=== PATIENT | female | born 1945 | race Hispanic/Latino ===

== ENCOUNTER 2019-03-11 05:32 | Observation (INO) | payer MEDICARE ==
[2019-02-28 13:32] LABS: BASOPHILS % 0.3 % (0.0-1.0); EOSINOPHILS # (AUTO) 0.1 (0.0-0.4); EOSINOPHILS % 1.4 % (0.0-6.0); HEMATOCRIT 43.9 % (34.2-44.1); LYMPHOCYTES # (AUTO) 4.2 (1.0-3.2); LYMPHOCYTES % 44.5 % (18.0-39.1); MEAN CORPUSCULAR HEMOGLOBIN 30.9 pg (28-32); MEAN CORPUSCULAR HGB CONC 34.2 g/dL (31-35); MEAN CORPUSCULAR VOLUME 90.3 fL (81-99); MONOCYTES # (AUTO) 0.5 (0.2-0.8); MONOCYTES % 5.2 % (4.4-11.3); NEUTROPHILS # (AUTO) 4.6 (2.1-6.9); NEUTROPHILS % 48.4 % (38.7-80.0); PLATELET COUNT 208 x10e3/uL (140-360); RED BLOOD COUNT 4.86 x10e6/uL (3.6-5.1); RED CELL DISTRIBUTION WIDTH 13.1 % (11.7-14.4)
--- NOTE | 2019-02-28 13:51 | Diagnostic Imaging Report ---
EXAMINATION: PA and lateral views of the chest. COMPARISON: None CLINICAL HISTORY: Preoperative study for orthopedic procedure DISCUSSION: Lungs are well-inflated. No focal airspace consolidation, pleural effusion, or pneumothorax. Tortuous thoracic aorta with atherosclerotic calcification. Normal heart size. No pulmonary edema. IMPRESSION: No acute cardiopulmonary abnormalities. Signed by: Dr. Jared Robertson M.D. on 02/28/2019 1:48 PM
[2019-02-28 13:53] LABS: ANION GAP 14.5 mmol/L (8-16); BLOOD UREA NITROGEN 15 mg/dL (7-26); BUN/CREATININE RATIO 20 (6-25); CALCIUM 10.5 mg/dL (8.4-10.2); CARBON DIOXIDE 29 mmol/L (22-29); CHLORIDE 101 mmol/L (98-107); CREATININE, SERUM 0.74 mg/dL (0.57-1.11); EST GLOMERULAR FILTRATION RATE > 60 ML/MIN (60-); GLUCOSE 135 mg/dL (74-118); POTASSIUM 3.5 mmol/L (3.5-5.1); SODIUM 141 mmol/L (136-145)
--- NOTE | 2019-03-05 07:42 | Diagnostic Imaging Report ---
EXAMINATION: PA and lateral views of the chest. COMPARISON: None CLINICAL HISTORY: Preoperative study for orthopedic procedure DISCUSSION: Lungs are well-inflated. No focal airspace consolidation, pleural effusion, or pneumothorax. Tortuous thoracic aorta with atherosclerotic calcification. Normal heart size. No pulmonary edema. IMPRESSION: No acute cardiopulmonary abnormalities. Signed by: Dr. Jared Robertson M.D. on 03/05/2019 7:39 AM
[~2019-03-11] VITALS: Ht 144.8 cm; Wt 64.4 kg
[~2019-03-11 05:32] MED LIST: ASPIRIN81 MG PO; ATORVASTATIN CA20 MG PO; GLUCOSAMINE1000 MG PO; HYZAAR 100-12.1 EACH PO; METFORMIN HCL500 MG PO; VITAMIN D31000 UNIT PO
--- OUTSIDE RECORDS SUMMARY | 2019-03-11 05:36 | XMS REPORT | Summary of Care ---
Author Author [facility] Organization [facility] Address Unknown Phone Unavailable Encounter HQ Encntr_alias(FIN) [id number] Date(s): 03/27/15 - 03/27/15 [facility] [address] [place] [address]- Discharge Disposition: Home Attending Physician: Theodore Randall MD Referring Physician: Theodore Randall MD Vital Signs No data available for this section Problem List No data available for this section Allergies, Adverse Reactions, Alerts No data available for this section Medications No data available for this section Results No data available for this section Immunizations No data available for this section Procedures No data available for this section Social History No data available for this section Assessment and Plan No data available for this section
--- OUTSIDE RECORDS SUMMARY | 2019-03-11 05:36 | XMS REPORT | Continuity of Care Document ---
Author Author [facility] Address Unknown Phone Unavailable Care Team Providers Care [employer] Makeup Artist Name Role Phone [employer] Unavailable Unavailable Problems Problem Status Onset Date Classification Date Reported Comments Source Encounter for screening mammogram for malignant neoplasm of breast 11/10/2017 02/13/2018 [facility] [place] LYMPHOMA Active 03/22/2015 [facility] Encounter for screening for osteoporosis 02/13/2018 [facility] [place] Asymptomatic menopausal state 02/13/2018 [facility] [place] Essential hypertension 02/13/2018 [facility] [place] Low back pain 02/13/2018 [facility] [place] Pain in right knee 02/13/2018 [facility] [place] Pain in left knee 02/13/2018 [facility] [place] Other specific arthropathies, not elsewhere classified, other specified site 02/13/2018 [facility] [place] Bilateral primary osteoarthritis of knee 02/13/2018 [facility] [place] LYMPHOMA NEC-EXTRNOD/NOS Active [facility] Medications No Data Provided for This Section Allergies, Adverse Reactions, Alerts No Known Medication Allergies Immunizations No Data Provided for This Section Results No Data Provided for This Section Pathology Reports No Data Provided for This Section Diagnostic Reports Report Value Date Source Breast Mammo Scrn LUKE incl CAD MA BILATERAL DIGITAL SCREENING MAMMOGRAM WITH CAD: 02/28/2019 CLINICAL: Routine/Screening. Current study was evaluated with a Computer Aided Detection (CAD) system. COMPARISON:Comparison is made to exams dated: 11/06/2017 mammogram, 01/07/2015 mammogram, 11/24/2014 mammogram, 01/07/2015 ultrasound, and 01/20/2015 ultrasound biopsy - [facility]. TECHNIQUE: Mammographic views were obtained using digital acquisition. Current study was also evaluated with a Computer Aided Detection (CAD) system. FINDINGS: There are scattered fibroglandular densities in both breasts. Bilateral axillary lymphadenopathy is again noted. A right axillary lymph node contains a biopsy clip denoting the site of known lymphoma. There are benign appearing vascular calcifications and calcifications in both breasts. No significant masses, calcifications, or other findings are seen in either breast. There has been no significant interval change. IMPRESSION: BENIGN RECOMMENDATION:Bilateral axillary lymphadenopathy is again noted. A right axillary lymph node contains a biopsy clip denoting the site of known lymphoma. Clinical correlation is advised. There is no mammographic evidence of malignancy. A 1 year screening mammogram is recommended.(02/29/2020) This exam was interpreted at [id number] for [facility], SL 15. Professional services are provided by the [facility] Diagnostic Imaging. Rose Maciel M.D. ms/penrad:03/03/2019 08:47:51 Baffle Installer(s): RT Kiana(R)(M), [facility] [place] letter sent: BI-RADS 1/2 Mammogram BI-RADS: 2 Benign 02/28/2019 [facility] Chest 2 views DX EXAM: Chest 2 views DX HISTORY: - Z00.00 Encounter for general adult medical examination without abnormal findings COMPARISON: 11/06/2017 The heart size is normal. The lungs are clear. There is no pleural effusion or pneumothorax. Mild discogenic degenerative changes are noted. IMPRESSION: No acute abnormality. 02/27/2018 [facility] Knee 1-2 Views Bilateral DX EXAM: Knee 1-2 Views Bilateral DX HISTORY: - pain in both knees COMPARISON: 01/11/2015 AP and lateral views of both knees. FINDINGS: There is moderate medial tibiofemoral joint space narrowing bilaterally. Moderate tricompartmental osteophytes. There is a millimeter calcification projecting in the suprapatellar patellar joint on the right. No fracture or dislocation. No significant joint effusion. IMPRESSION: Moderate degenerative change of both knees. 11/06/2017 [facility] Spine lumbar 2 or 3 views DX EXAM: Spine lumbar 2 or 3 views DX HISTORY: - M54.5 Low back pain COMPARISON: None AP and lateral views of the lumbar spine. FINDINGS: AP alignment is normal. There is no evidence of vertebral body or disc space height loss. No fracture is seen. Mild facet arthropathy at L4-5 and L5-S1. IMPRESSION: Mild facet arthropathy. 11/06/2017 [facility] Chest 2 views DX EXAM: Chest 2 views DX HISTORY: - I10 Essential (primary) hypertension COMPARISON: 11/24/2014 The heart size is normal and the lungs are clear. There is no pleural effusion or pneumothorax. Mild discogenic degenerative changes are noted. IMPRESSION: No acute abnormality. 11/06/2017 [facility] Bone Density DXA [employer] MA BONE DENSITY ASSESSMENT: 11/06/2017 CLINICAL DATA: Post menopausal. Z13.820-Screening for osteoporosis. Z13.820 Encounter For Screening For Osteoporosis/Z13.820 Encounter For Screening For Osteoporosis RISK FACTORS: . FINDINGS: Bone density evaluation was performed 11/06/2017 on the right femur neck using a Hologic unit. The BMD average for the exam is 0.960 g/cm2. The T-score is 1.00 and the Z-score is 2.50. This matches the World Health Organization's criteria for normal bone density and places the patient within normal limits of fracture risk. An additional bone density evaluation was performed 11/06/2017 on the left femur neck using a Hologic unit. The BMD average for the exam is 1.031 g/cm2. The T- score is 1.60 and the Z-score is 3.20. This matches the World Health Organization's criteria for normal bone density and places the patient within normal limits of fracture risk. An additional bone density evaluation was performed 11/06/2017 on the right hip using a Hologic unit. The BMD average for the exam is 1.017 g/cm2. The T-score is 0.60 and the Z-score is 1.90. This matches the World Health Organization's criteria for normal bone density and places the patient within normal limits of fracture risk. An additional bone density evaluation was performed 11/06/2017 on the left hip using a Hologic unit. The BMD average for the exam is 1.025 g/cm2. The T-score is 0.70 and the Z-score is 2.00. This matches the World Health Organization's criteria for normal bone density and places the patient within normal limits of fracture risk. An additional bone density evaluation was performed 11/06/2017 on the AP L1-L4 region of spine using a Hologic unit. The BMD average for the exam is 0.946 g/cm2. The T-score is -0.90 and the Z-score is 1.30. This matches the World Health Organization's criteria for normal bone density and places the patient within normal limits of fracture risk. IMPRESSION: BONE DENSITY WITHIN NORMAL LIMITS Patient is at normal risk for fracture. This exam was interpreted at [id number] at [facility]. Dr. Marizol Freedman D.O. /penrad:11/06/2017 16:27:00 Baffle Installer(s): Julia Stark RT(R)(M), [facility] 11/06/2017 [facility] Breast Mammo Scrn LUKE incl CAD MA BILATERAL DIGITAL SCREENING MAMMOGRAM WITH CAD: 11/06/2017 CLINICAL: Routine/Screening. Current study was evaluated with a Computer Aided Detection (CAD) system. COMPARISON:Comparison is made to exams dated: 01/07/2015 mammogram and 11/24/2014 mammogram - [facility]. TECHNIQUE: Mammographic views were obtained using digital acquisition. Current study was also evaluated with a Computer Aided Detection (CAD) system. FINDINGS: There are scattered fibroglandular densities in both breasts. Bilateral axillary lymphadenopathy is again noted. A right axillary lymph node contains a biopsy clip denoting the site of known lymphoma. There are benign appearing vascular calcifications and calcifications in both breasts. No significant masses, calcifications, or other findings are seen in either breast. There has been no significant interval change. IMPRESSION: BENIGN RECOMMENDATION:Bilateral axillary lymphadenopathy is again noted. A right axillary lymph node contains a biopsy clip denoting the site of known lymphoma. Clinical correlation is advised. There is no mammographic evidence of malignancy. A 1 year screening mammogram is recommended.(11/07/2018) Professional services are provided by the [facility] [place] [facility] Diagnostic Imaging. Juan Rosa M.D. rsana/penrad:11/06/2017 13:05:56 Baffle Installer(s): Marga Case RT(R)(M), [facility] letter sent: BI-RADS 1/2 Mammogram BI-RADS: 2 Benign 11/06/2017 [facility] [place] [address] Lymphoma initial staging PET/CT SCAN: TECHNIQUE: 16.1 mCi of FDG were administered intravenously and a series of overlapping emission images were obtained from the skull base to the proximal thighs utilizing a PET/CT hybrid device. The CT was utilized for attenuation correction and anatomic correlation and not as an independent diagnostic study. BLOOD GLUCOSE: The patient is not diabetic. COMPARISON: Breast ultrasound 01/07/2015 CLINICAL HX: B-cell lymphoma, initial staging. FINDINGS: HEAD AND NECK: No abnormal activity is visualized. CHEST: Multiple small primarily subcentimeter lymph nodes are visualized in both axilla. No significant increase in metabolic activity is noted in either axilla. Maximum SUV is 1.6 on image 73. ABDOMEN AND PELVIS: Physiologic activity is visualized in the solid organs, tract and GI tract. SKELETON: Healing fractures of left seventh and eighth ribs demonstrate mild increase in metabolic activity. No other focus of abnormal activity is noted in the regional skeleton IMPRESSION: Multiple small lymph nodes are visualized in both axilla without significant increase in metabolic activity. No other significant lymphadenopathy is noted on the PET scan. SL:13 03/27/2015 [facility] Consultation Notes No Data Provided for This Section Discharge Summaries No Data Provided for This Section History and Physicals No Data Provided for This Section Vital Signs No Data Provided for This Section Encounters Location Location Details Encounter Type Encounter Number Reason For Visit Attending Provider ADM Date DC Date Status Source [facility] [place] [facility] [id number] [facility] 11/24/2014 11/25/2014 [facility] [place] [facility] [place] [facility] [id number] [facility] 01/07/2015 01/08/2015 [facility] [place] [facility] [place] [facility] [id number] [facility] 01/11/2015 01/12/2015 [facility] [place] [facility] [place] [facility] [id number] [facility] 01/20/2015 01/21/2015 [facility] [place] [facility]patient [id number] [facility] 03/27/2015 03/28/2015 [facility] [place] [facility] [id number] Maxwell Mathis 11/06/2017 11/07/2017 [facility] [place] [facility] [place] [facility] [id number] Maxwell Mathis 02/27/2018 02/28/2018 [facility] [place] [facility] [place] [facility] [id number] Maxwell Mathis 02/28/2019 03/01/2019 [facility] Procedures No Data Provided for This Section Assessment and Plan No Data Provided for This Section Plan of Care No Data Provided for This Section Social History Social History Date Source No data available for this section 03/01/2019 [facility] No data available for this section 03/28/2015 [facility] No Data Provided for This Section Advance Directives No Data Provided for This Section Functional Status No Data Provided for This Section
--- OUTSIDE RECORDS SUMMARY | 2019-03-11 05:36 | XMS REPORT | Summary of Care ---
Author Organization Unknown Address Unknown Phone Unavailable Encounter HQ Encntr_alias(FIN) [id number] Date(s): 01/11/15 - 01/11/15 [facility] Outpatient Imaging - [address] [address] [phone] Discharge Disposition: Home Physician Attending: Anjel Altman MD Vital Signs No data available for [...]
--- OUTSIDE RECORDS SUMMARY | 2019-03-11 05:36 | XMS REPORT | Summary of Care ---
Author Organization Unknown Address Unknown Phone Unavailable Encounter HQ Encntr_alias(FIN) [id number] Date(s): 01/07/15 - 01/07/15 [facility] Outpatient Imaging - [address] [address] [phone] Discharge Disposition: Home Physician Attending: Anjel Altman [...]
--- OUTSIDE RECORDS SUMMARY | 2019-03-11 05:36 | XMS REPORT | Summary of Care ---
Author Organization Unknown Address Unknown Phone Unavailable Encounter HQ Encntr_alias(FIN) [id number] Date(s): 01/20/15 - 01/20/15 [facility] Outpatient Imaging - [address] [address] [phone] Discharge Disposition: Home Physician Attending: Anjel Altman [...]
--- OUTSIDE RECORDS SUMMARY | 2019-03-11 05:36 | XMS REPORT | Summary of Care ---
Author Author [facility] [place] Organization [facility] [place] Address Unknown Phone Unavailable Encounter HQ Encntr_alias(FIN) [id number] Date(s): 02/28/19 - 02/28/19 [facility] Outpatient Imaging - [place] [address] [place] [phone] Discharge Disposition: Home or Self Care Attending Physician: Maxwell Mathis MD Referring Physician: Maxwell Mathis MD Vital Signs No data available for [...]
--- OUTSIDE RECORDS SUMMARY | 2019-03-11 05:36 | XMS REPORT ---
Author Author [facility] Address Unknown Phone Unavailable Care Team Providers Care Stucco Mason Name Role Phone CATE MADDOX Unavailable Unavailable Problems This patient has no known problems. Allergies, Adverse Reactions, Alerts This patient has no known allergies or adverse reactions. Medications This patient has no known medications. Results Test Description Test Time Test Comments Text Results Atomic Results Result Comments CHEST 2 VIEWS 2019-03-05 07:38:00 [place] [address] Patient Name: TAHIR NOEL MR #: [id number] : 1945 Age/Sex: 73/F Req #: [id number] Adm Physician: Ordered by: CATE MADDOX MD Report #: [id number] Location: OR Room/Bed: Procedure: [id number] DX/CHEST 2 VIEWS Exam Date: 02/28/19 Exam Time: 1300 REPORT STATUS: Signed EXAMINATION: PA and lateral views of the chest. COMPARISO N: None CLINICAL HISTORY: Preoperative study for orthopedic procedure DISCUSSION: Lungs are well-inflated. No focal airspace consolidation, pleural effusion, or pneumothorax. Tortuous thoracic aorta with atherosclerotic calcification. Normal heart size. No pulmonary edema. IMPRESSION: No acute cardiopulmonary abnormalities. Signed by: Dr. Cate Richardson M.D. on 03/05/2019 7:39 AM Dictated By: CATE RICHARDSON MD [id number] Transcribed By: CRISTINA on 03/05/1939 COPY TO: CATE MADDOX MD CHEST 2 VIEWS 2019-02-28 13:47:00 [place] [address] Patient Name: TAHIR NOEL MR #: [id number] : 1945 Age/Sex: 73/F Req #: [id number] Adm Physician: Ordered by: CATE MADDOX MD Report #: [id number] Location: OR Room/Bed: Procedure: [id number] DX/CHEST 2 VIEWS Exam Date: 02/28/19 Exam Time: 1310 REPORT STATUS: Signed EXAMINATION: PA and lateral views of the chest. COMPAR YAIR: None CLINICAL HISTORY: Preoperative study for orthopedic procedure DISCUSSION: Lungs are well-inflated. No focal airspace consolidation, pleural effusion, or pneumothorax. Tortuous thoracic aorta with atherosclerotic calcification. Normal heart size. No pulmonary edema. IMPRESSION: No acute cardiopulmonary abnormalities. Signed by: Dr. Cate Richardson M.D. on 02/28/2019 1:48 PM Dictated By: CATE RICHARDSON MD 1348 Transcribed By: CRISTINA on 02/28/19 1348 COPY TO: CATE MADDOX MD
--- OUTSIDE RECORDS SUMMARY | 2019-03-11 05:36 | XMS REPORT | Summary of Care ---
Author Organization Unknown Address Unknown Phone Unavailable Encounter HQ Encntr_alias(FIN) [id number] Date(s): 11/24/14 - 11/24/14 [facility] Outpatient Imaging - [address] [address] [phone] Discharge Disposition: Home Physician Attending: Anjel Altman [...]
--- OUTSIDE RECORDS SUMMARY | 2019-03-11 05:36 | XMS REPORT | Summary of Care ---
Author Author [facility] [place] Organization [facility] [place] Address Unknown Phone Unavailable Encounter HQ Encntr_alias(FIN) [id number] Date(s): 02/27/18 - 02/27/18 [facility] Outpatient Imaging - [place] [address] [place] [phone] Discharge Disposition: Home or Self Care Attending Physician: Maxwell Mathis MD Vital Signs No [...]
--- OUTSIDE RECORDS SUMMARY | 2019-03-11 05:36 | XMS REPORT | Summary of Care ---
Author Author [facility] [place] Organization [facility] Outpatient Imaging - [place] Address Unknown Phone Unavailable Encounter HQ Encntr_wes(FIN) [id number] Date(s): 11/06/17 - 11/06/17 [facility] Outpatient Imaging - [place] [address] [place], [place] [address] [phone] Encounter Diagnosis Encounter for screening mammogram for malignant neoplasm of breast (Final) - 11/09/17 Encounter for screening for osteoporosis (Final) - Asymptomatic menopausal state (Final) - Essential (primary) hypertension (Final) - Low back pain (Final) - Pain in right knee (Final) - Pain in left knee (Final) - Other specific arthropathies, not elsewhere classified, other specified site (Final) - Bilateral primary osteoarthritis of knee (Final) - Discharge Disposition: Home or Self Care Attending [...]
--- OUTSIDE RECORDS SUMMARY | 2019-03-11 05:36 | XMS REPORT | Summary of Care ---
Author Author [facility] Outpatient Imaging - [place] Organization [facility] [place] Address Unknown Phone Unavailable Encounter HQ Encntr_wes(FIN) [id number] Date(s): 11/06/17 - 11/06/17 [facility] Outpatient Imaging - [place] [address] [place] [phone] Encounter Diagnosis Encounter for screening mammogram for [...]
[2019-03-11] MEDS ORDERED: CELECOXIB 200 MG CAP ONE (06:13)
[2019-03-11] MEDS ORDERED: DEXAMETHASONE SOD PHOS 10 MG/1 ML VIAL ONE (06:13)
[2019-03-11] MEDS ORDERED: GABAPENTIN 300 MG CAP ONE (06:14)
[2019-03-11] MEDS ORDERED: CEFAZOLIN SOD 1 GM/NS 50ML 100 ML IV ONE (06:14)
[2019-03-11] MEDS ORDERED: TRANEXAMIC ACID 1,000 MG/10 ML ML ONE (06:42)
[2019-03-11] MEDS ORDERED: VANCOMYCIN HCL 1,000 MG ONE (06:42)
[2019-03-11] MEDS ORDERED: SODIUM CHLORIDE 0.9% 500ML 500 ML ONE (06:42)
[2019-03-11] MEDS ORDERED: BACITRACIN 50,000 UNIT VIAL ONE (06:43)
[2019-03-11] MEDS ORDERED: SODIUM CHLORIDE 0.9% 1000ML 1,000 ML IV SCH (08:44)
[2019-03-11] MEDS ORDERED: PROMETHAZINE HCL (IM) 25 MG/ML VIAL INJ PRN (08:45)
[2019-03-11] MEDS ORDERED: ACETAMINOPHEN 650 MG SUPP PR PRN (08:45)
[2019-03-11] MEDS ORDERED: HYDROCODONE/APAP 5MG-325MG TAB PO PRN (08:45)
[2019-03-11] MEDS ORDERED: ZOLPIDEM TARTRATE 5 MG TAB PO PRN (08:45)
[2019-03-11] MEDS ORDERED: ONDANSETRON HCL INJ 2MG/ML 2ML 2 MG/ML VIAL IV PRN (08:45)
[2019-03-11] MEDS ORDERED: DIPHENHYDRAMINE HCL INJ 50 MG/ML VIAL IM/IV PRN (08:45)
[2019-03-11] MEDS ORDERED: KETOROLAC TROMETHAMINE 30 MG/ML VIAL IV PRN (08:45)
[2019-03-11] MEDS ORDERED: DOCUSATE SODIUM 100 MG CAP PO PRN (08:45)
--- OUTSIDE RECORDS SUMMARY | 2019-03-11 09:09 | XMS REPORT | Continuity of Care Document ---
Author Author [employer] Organization [employer] Address Unknown Phone Unavailable Care Team Providers Care Dot Etcher Name Role Phone [email or web address] Information Attunity Unavailable Unavailable Problems Problem Status Onset Date Classification Date Reported Comments Source Encounter for screening mammogram for malignant neoplasm of breast 11/10/2017 02/13/2018 [facility] LYMPHOMA Active 03/22/2015 [facility] Encounter for screening for osteoporosis 02/13/2018 [facility] Asymptomatic menopausal state 02/13/2018 [facility] Essential hypertension 02/13/2018 [facility] Low back pain 02/13/2018 [facility] Pain in right knee 02/13/2018 [facility] Pain in left knee 02/13/2018 [facility] Other specific arthropathies, not elsewhere classified, other specified site 02/13/2018 [facility] Bilateral primary osteoarthritis of knee 02/13/2018 [facility] LYMPHOMA NEC-EXTRNOD/NOS Active [facility] Medications No Data Provided for This Section [...] 01/07/2015 ultrasound, and 01/20/2015 ultrasound biopsy - [facility]. TECHNIQUE: Mammographic views were obtained using digital [...] is recommended.(02/29/2020) This exam was interpreted at [id number] for ANJ[facility], SL 15. Professional services are provided by the [facility] Diagnostic Imaging. Rose Maciel M.D. ms/penrad:03/03/2019 08:47:51 Meat Counter Worker(s): RT Kiana(R)(M), [facility] letter sent: BI-RADS 1/2 Mammogram BI-RADS: [...] for fracture. This exam was interpreted at [id number] at [facility] [place]. Dr. Marizol Freedman D.O. /penrad:11/06/2017 16:27:00 Meat Counter Worker(s): Julia Stark RT(R)(M), [facility] 11/06/2017 [facility] Breast Mammo Scrn LUKE incl CAD MA BILATERAL DIGITAL SCREENING MAMMOGRAM WITH CAD: 11/06/2017 CLINICAL: Routine/Screening. Current study was evaluated with a Computer Aided Detection (CAD) system. COMPARISON:Comparison is made to exams dated: 01/07/2015 mammogram and 11/24/2014 mammogram - [facility]. TECHNIQUE: Mammographic views were obtained using digital [...] Diagnostic Imaging. Juan Rosa M.D. rsana/penrad:11/06/2017 13:05:56 Meat Counter Worker(s): Marga Case RT(R)(M), [facility] letter sent: BI-RADS 1/2 Mammogram BI-RADS: 2 Benign 11/06/[address] [facility] [address] Lymphoma initial staging PET/CT SCAN: [...] noted on the PET scan. SL:13 03/27/2015 [facility] Consultation Notes No Data Provided for This Section Discharge Summaries No Data Provided for This Section History and Physicals No Data Provided for This Section Vital Signs No Data Provided for This Section Encounters Location Location Details Encounter Type Encounter Number Reason For Visit Attending Provider ADM Date DC Date Status Source [facility] [id number] [facility] 11/24/2014 11/25/2014 [facility] [place] [facility] [id number] [facility] 01/07/2015 01/08/2015 [facility] [place] [id number] [facility] 01/11/2015 01/12/2015 [facility] [place] [facility] [id number] [facility] 01/20/2015 01/21/2015 [facility] Out[facility] [id number] [facility] 03/27/2015 03/28/2015 [facility] [place] [facility] [id number] Maxwell Mathis 11/06/2017 11/07/2017 [facility] [place] [facility] [id number] Maxwell Mathis 02/27/2018 02/28/2018 [facility] [place] [facility] [id number] Maxwell Mathis 02/28/2019 03/01/2019 [facility] Procedures [...]
--- NOTE | 2019-03-11 09:19 | Diagnostic Imaging Report ---
Exam: Right knee 2 views History: Postop Comparison: None. Findings: See impression Impression: Status post total right knee replacement with intact surgical hardware and no periprosthetic displaced fracture. Expected subcutaneous gas and skin alethea. Signed by: Dr. Jared Robertson M.D. on 03/11/2019 9:16 AM
[2019-03-11] MEDS ORDERED: FENTANYL CITRATE/PF 100MCG/2 ML INJ ONE ×2 (09:33→18:32)
--- NOTE | 2019-03-11 12:30 | NUR ---
RECEIVED REPORT FROM HOT TOP LINER, PT IS S/P R TOTAL KNEE ARTHROPLASTY. VITAL SIGNS IN POST-OP WERE 119/53, HR 57, RR 14, O2 SAT 99% ON 2L O2 VIA NC. PT HAS NO S/S OF DISTRESS AND IS DROWSY. R HAND 20G IV WITH R RUNNING IN PACU. ONCE THE PT CAN TOLERATE PO, THE IV CAN BE CHANGED TO SALINE LOCK. PT HAS A HISTORY OF HEART MURMUR, DM, HTN, HLD AND LYMPHOMA. DAUGHTERS ARE AT THE BEDSIDE WITH THE PT
[2019-03-11 13:01] VITALS: BP 137/65
[2019-03-11] MEDS: ASPIRIN 325 MG TAB PO SCH ×2 (13:09→18:00)
[2019-03-11] MEDS: CELECOXIB 200 MG CAP PO SCH ×2 (13:09→18:00)
[2019-03-11] MEDS: ACETAMINOPHEN 1000 MG/100 ML IV SCH ×2 (13:10→18:00)
--- NOTE | 2019-03-11 13:35 | NUR ---
PHYSICAL THERAPY IS CURRENTLY AT THE BEDSIDE DOING FIRST ASSESSMENT
[2019-03-11 13:36] VITALS: BP 137/65
[2019-03-11 13:54] VITALS: BP 137/65
--- NOTE | 2019-03-11 14:00 | NUR ---
PHYSICAL THERAPY REPORTED THAT PATIENT WAS BUCKLING AND COULDN'T STRAIGHTEN LEGS. PT IS TO REMAIN ON BED REST UNTIL PHYSICAL THERAPY CAN RE-ASSESS PATIENT TOMORROW 03/12/19
[2019-03-11] MEDS: CEFAZOLIN SOD 1 GM/NS 50ML 50 ML IV SCH ×2 (14:15→23:31)
--- NOTE | 2019-03-11 14:50 | NUR ---
started CPM therapy. pt is tolerating well and sleeping, no complaints. will stop CPM at 1650 if pt continues to tolerate.
[2019-03-11 16:02] VITALS: BP 115/59
[2019-03-11] MEDS ORDERED: SEVOFLURANE INHAL SOLN 250 ML PEN BTL ONE (18:09)
[2019-03-11] MEDS ORDERED: PROPOFOL IV EMULSION 10 MG/ML 20 ML VIAL ONE (18:09)
[2019-03-11] MEDS ORDERED: LIDOCAINE HCL 2% LOCAL INJ 5 ML SDV VIAL INJ ONE (18:09)
[2019-03-11] MEDS ORDERED: ONDANSETRON HCL INJ 2MG/ML 2ML 2 MG/ML VIAL ONE (18:09)
--- NOTE | 2019-03-11 18:28 | NUR ---
pt is tolerating meds and food po. converted iv to saline lock according to orders.
[2019-03-11] MEDS ORDERED: EPINEPHRINE HCL 1:1000 1ML 1 MG/ML AMP ONE (18:31)
[2019-03-11] MEDS ORDERED: ROPIVACAINE 0.5% 5 MG/ML 30 ML SDV ONE (18:31)
[2019-03-11] MEDS ORDERED: MIDAZOLAM HCL 2 MG/2 ML VIAL ONE (18:32)
--- NOTE | 2019-03-11 19:15 | NUR ---
report given to oncoming nurse, end of shift rounds done. pt is alert lying in bed, no s/s of distress. family is at the bedside
[2019-03-11 19:35] VITALS: BP 103/58
[2019-03-11 20:00] VITALS: BP 103/58
[2019-03-11] MEDS: HYDROCODONE/APAP 7.5MG-325MG 1 EA TAB PO PRN (20:05)
--- NOTE | 2019-03-11 20:06 | NUR ---
PATIENT C/O PAIN TO THE RIGHT LEG WITH PAIN SCORE #7, MEDICATED WITH NORCO 1TAB ORDERED. NIKKI WRAP DRESSING DRY AND INTACT TO THE RIGHT LEG, PATIENT IS ABLE TO MOVE THE LEG. NO RESPIRATORY DISTRESS OBSERVED, CALL LIGHT WITHIN EASY REACH, FAMILY MEMBERS VISITING WITH THE PATIENT.
--- NOTE | 2019-03-11 21:05 | NUR ---
CPM APPLIED, PATIENT TOLERATING AT 65DEGREES. NIKKI WRAP DRESSING REMAINS DRY AND INTACT TO THE RIGHT LEG.
[2019-03-12] VITALS: BP 100/58
[2019-03-12] MEDS: ACETAMINOPHEN 1000 MG/100 ML IV SCH ×2 (00:31→05:49)
--- NOTE | 2019-03-12 01:55 | NUR ---
PATIENT IS ASLEEP, NO RESPIRATORY DISTRESS OBSERVED. CALL LIGHT WITHIN EASY REACH, FAMILY MEMBER WITH THE PATIENT.
[2019-03-12] MEDS: HYDROCODONE/APAP 7.5MG-325MG 1 EA TAB PO PRN ×2 (02:28→08:58)
[2019-03-12 04:00] VITALS: BP 108/56
--- NOTE | 2019-03-12 04:05 | NUR ---
ROUNDS MADE, PATIENT ASLEEP BUT EASY TO AROUSE. DRESSING DRY AND INTACT TO THE RIGHT LEG, SHE DENIES PAIN. CALL LIGHT WITHIN EASY REACH, SHE'S INSTRUCTED TO CALL FOR ASSISTANCE NEEDED.
--- NOTE | 2019-03-12 04:15 | Operative Report ---
DATE OF PROCEDURE: 03/11/2019 SURGEON: Jared Stevenson MD BRICK AND TILE MAKING MACHINE OPERATOR: Luciano Gillette, certified PA. PREOPERATIVE DIAGNOSIS: Osteoarthritis of right knee. POSTOPERATIVE DIAGNOSIS: Osteoarthritis of right knee. PROCEDURE: Right total knee arthroplasty. INDICATIONS: The patient is a 73-year-old lady with end-stage arthritis of her right knee. She has failed conservative management and would like to proceed with a right total knee replacement. The risks and benefits of the procedure have been explained. All of her questions have been answered. She states she understands and wishes to proceed. PROCEDURE IN DETAIL: The patient was brought to the operating room and placed under general anesthetic. She received prophylactic antibiotics, a regional block and tranexamic acid in the holding area. Her right lower extremity was prepped and draped in a sterile manner. A preoperative time-out was performed. The extremity was exsanguinated and a proximal tourniquet was inflated to 300 mmHg. An anterior approach with a medial parapatellar arthrotomy was performed. Clear synovial fluid was removed from the joint. Soft tissue releases were performed to bring the knee up into flexion with the patella everted. Marginal osteophytes and meniscal remnants were removed. The anterior cruciate ligament was released. A [employer] medial congruent knee system was used throughout the case. An extramedullary cutting guide was used to resect the proximal tibia. The cut was referenced off the severely worn medial compartment. The tibial base plate was a size C. The central peg was drilled and punched. Attention was directed towards the distal femur. An intramedullary cutting guide was used to resect the distal femur in 5 degrees of valgus and rotation referencing off a combination of landmarks including Whitesides line, the epicondylar axis and the posterior condyles. The femoral component was a size #4. The anterior and posterior cuts were made. A trial reduction was performed. A 10 mm medial congruent tibial insert provided appropriate soft tissue balancing in full extension and 90 degrees of flexion. The patella was resurfaced with a 26 mm x 7.5 mm patellar button. The thickness was checked before and after resurfacing, it was right around 21 mm. Patellar tracking was noted to be concentric. The trial implants were removed. A 100 mL premixed pericapsular DAVID injection was placed into the surrounding soft tissue. The knee was thoroughly irrigated with a shower tip pulsatile lavage. All of the bone cuts had been irrigated with a spray mixture of diluted polymyxin and vancomycin spray. The components were cemented into place using a single mix of Palacos cement preloaded with antibiotics. Care was taken to remove all extravasated cement. The wound was further irrigated while the cement cured. A 500 mg of vancomycin powder was then sprinkled into the joint. The arthrotomy was closed with interrupted #1 Ethibond. The knee was put through flexion and extension to ensure a secure closure. The skin was then closed with subcuticular Vicryl and alethea. A sterile Aquacel bandage was then applied. The patient was extubated and transported to the recovery room in stable condition. All needle and sponge counts were correct. Blood loss was minimal. Jared Stevenson MD DR/MCKENNA /[id number]
[2019-03-12 06:08] LABS: HEMATOCRIT 35.7 % (34.2-44.1)
--- NOTE | 2019-03-12 06:21 | Consultation ---
DATE OF CONSULTATION: 03/12/2019 REASON FOR CONSULTATION: Postop medical management. HISTORY OF PRESENT ILLNESS: The patient is a 73-year-old, status post total knee arthroplasty of the right knee with complaints of knee pain and denies any chest pain, fever, chills, nausea, vomiting, headache, shortness of breath or dizziness on review of systems. PAST MEDICAL HISTORY: Significant for hypertension, hyperlipidemia, and prediabetes. MEDICATIONS: See MAR. ALLERGIES: NONE. SOCIAL HISTORY: Nonsmoker and nondrinker, , lives at home. FAMILY HISTORY: Noncontributory. PHYSICAL EXAMINATION: VITAL SIGNS: Temperature is 95.8, pulse 69, blood pressure 100/58, and sats 94% on room air. GENERAL: She is no apparent distress, lying in bed. NECK: Supple. CARDIOVASCULAR: Regular rate and rhythm. LUNGS: Clear to auscultation bilaterally. ABDOMEN: Good bowel sounds. Soft and nontender. EXTREMITIES: No clubbing or cyanosis. Right knee is in brace. NEUROLOGIC: Nonfocal. ASSESSMENT AND PLAN: 1. Hypertension. Continue with current monitoring. Restart her medicines at discharge. 2. Diabetes. Continue to monitor sugar. 3. Knee pain. We will continue with current care and physical therapy. 4. Anemia, check a CBC. 5. Hyperlipidemia. We will restart her medicines at discharge. Please see hospital chart for full details. MD JAMARI Zendejas/MCKENNA /[id number]
[2019-03-12] MEDS: CEFAZOLIN SOD 1 GM/NS 50ML 50 ML IV SCH (06:48)
[2019-03-12] MEDS: ASPIRIN 325 MG TAB PO SCH (08:18)
[2019-03-12] MEDS: CELECOXIB 200 MG CAP PO SCH (08:18)
[2019-03-12 08:22] VITALS: BP 141/61
[2019-03-12] MEDS ORDERED: ACETAMINOPHEN 1000 MG/100 ML IV PRN (08:45)
--- NOTE | 2019-03-12 10:11 | NUR ---
PATIENT DME AND HOME HEALTH COMPANIES PRE-ARRANGED BY DR. MADDOX'S OFFICE. PATIENT WITH HOME HEALTH AND DME CONTACT INFORMATION. PATIENT AWARE TO CALL CM IF ANY PROBLEMS OCCUR WITHIN 3 DAYS POST- DISCHARGE. HOME HEALTH EXPLAINED IN DEPTH WITH SERVICES PROVIDED. PATIENT VERBALLY UNDERSTOOD AND SIGNED CHOICE LETTER. THE FOLLOWING HOME HEALTH AND DME COMPANY VERIFIED PATIENT IS ON SERVICE WITH THEM: [facility] (P) [phone] (F) [phone] CM CONFIRMED WITH NOEMÍ. PATIENT TO BEGIN SERVICES 03/13 THERAPY SUPPLY HOUSE: ([facility]) (P) [phone] (F) [phone] CM SPOKE TO OCRI AND CONFIRMED PATIENT TO RECEIVE EQUIPMENT BETWEEN 12 PM AND 5 PM TODAY AT HOME. [employer] (WALKER WITH WHEELS) PATIENT UNABLE TO RECEIVE ROLLING WALKER FROM THERAPY SUPPLY HOUSE SO PATIENT SIGNED CHOICE FOR WALKER TO BE DELIVERED AT BEDSIDE BY [facility] [employer] [facility]. [employer] FORM SIGNED BY PATIENT AND STAPLED TO ORDER AND FACESHEET. PENDING SIGNATURE BY
--- NOTE | 2019-03-12 11:48 | NUR ---
MACKENZIE EXPLAINED TO PT, SIGNED AND PLACED ON CHART COPY OF MACKENZIE PLACED IN CARE TRANSITIONS FOLDER
== END 2019-03-12 11:52 | disposition home health service (06) ==
LOC: OR 05:32 → PACU V 08:47 → MED/SURG 12:22
PROVIDERS: ADMIT Specialist; ATTEND Specialist
DX: M17.0 Bilateral primary osteoarthritis of knee (principal); Z85.72 Personal history of non-Hodgkin lymphomas; I10 Essential (primary) hypertension; E11.9 Type 2 diabetes mellitus without complications; D64.9 Anemia, unspecified; E78.5 Hyperlipidemia, unspecified
CPT/HCPCS: 27447; 36415 ×3; 71046; 73560; 80048; 82948 ×2; 85014; 85018; 85025; 86850; 86900; 86920; 96367; 97110; 97116; 97161; 97530 ×2; C1713; C1776; G0378 ×2; J0131 ×2; J0171; J0690 ×2; J1100; J1885; J2001; J2250; J2405; J2550; J2704; J2795; J3370; J7030; J7040; 96365; J3010